=== PATIENT | female | born 2000 | race Caucasian/White ===

== ENCOUNTER 2023-01-19 20:24 | Emergency (ER) | payer OTHER, SELFPAY ==
[2023-01-19 20:46] VITALS: BP 117/71; PULSE 84; RESP 16; TEMP 36.8; O2SAT 99; BMI 23.8
--- NOTE | 2023-01-19 21:07 | ED.FEMALEGU ---
HPI - Female Genitourinary General Chief complaint: Urogenital Problems, Female Stated complaint: stomach pain Time Seen by Provider: 01/19/23 20:53 History of Present Illness HPI Narrative: This 22-year-old female comes in with heavy menstrual cramping and bleeding. She has a history of this and has been on a Depo shot. Her last shot that she received here in the [place] was done about a month and a half ago. She has had other treatments in [place]. 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 She does not report any fever, nausea, vomiting, or diarrhea. She does not report lightheadedness or shortness of breath. Related Data Home Medications Medication Instructions Recorded Confirmed No Known Home Medications 12/07/22 12/07/22 Allergies Allergy/AdvReac Type Severity Reaction Status Date / Time No Known Drug Allergies Allergy Verified 12/07/22 15:14 Review of Systems Status of ROS: Reports: 10 or more systems reviewed and unremarkable except as noted in History and below Narrative: Constitutional: No fevers, no weight gain or loss. Eyes: No discharge. No vision changes. HENT: No congestion, no sore throat, no ear pain. Cardiovascular: No chest pain, no palpitations. Respiratory: No shortness of breath, no wheezes, no cough. Gastrointestinal: No abdominal pain, no vomiting, no diarrhea. Genitourinary: No dysuria, no hematuria. Heavy menstrual bleeding with a large clot. Musculoskeletal: Normal range of motion. Skin: No rashes, no pruritis. Neurological: No dizziness, weakness, sensory change, speech change. Endo/Heme/Allergies: No bruising or bleeding. No polydipsia. Pysch: no suicidality, no anxiety, no insomnia. All other systems reviewed and are negative. PFSH PFSH Family History Grandmother High blood pressure High cholesterol Diabetes Grandfather Abuse, drug or alcohol Social History What is your current living situation?: I presently have a place to live Problems where you live: declined to answer In the past 12 months, utilities in danger of being shut off: no In past 12 months, lack of transportation kept you from medical appts, meetings, work, or getting things needed for daily living: no In the past 12 mos, have been you worried that your food would run out before you had money to buy more?: never true In the past 12 mos, the food you bought just didn't last and you didn't have money to buy more?: never true How often does anyone, including family, friends and others, physically hurt you: never How often does anyone, including family, friends and others, insult or talk down to you: never How often does anyone, including family, friends and others, threaten you with harm: never How often does anyone, including family, friends and others, scream or curse at you: never Exam Narrative: Exam Narrative: Constitutional: Well-developed, well-nourished, no acute distress. HEENT: Normocephalic, atraumatic. Neck: Normal range of motion. Nontender. Supple. Heart: Regular. No murmurs. Normal rate. Intact distal pulses. Lungs: Clear to auscultation. No chest discomfort. No wheezes, rhonchi, or rales. Abdomen: Normal bowel sounds. Lower abdominal cramping on occasion. No rebound tenderness. Genitalia: Deferred. Back: No midline tenderness. Normal range of motion. Extremities: Normal range of motion. No injury. Skin: Intact. No rash. Warm. No erythema or pallor. Neurologic: No altered sensation. No weakness. Alert and oriented. Psychiatric: No suicidality. No anxiety or depression. No insomnia. Nursing notes and vitals signs are reviewed. Const: Vital Signs, click to edit/add: Vital Signs - 24 hr 01/19/23 20:46 Temperature 98.2 F Pulse Rate [Right Pulse Oximeter] 84 Respiratory Rate 16 Blood Pressure [Ri ght Upper Arm] 117/71 Pulse Oximetry 99 Oxygen Delivery Me thod Room Air Course Vital Signs Vital signs: Initial Vital Signs Temperature 98.2 F 01/19/23 20:46 Temperature Source Temporal Artery Scan 01/19/23 20:46 Pulse Rate 84 01/19/23 20:46 Pulse Rhythm Regular 01/19/23 20:46 Respiratory Rate 16 01/19/23 20:46 Blood Pressure 117/71 01/19/23 20:46 Blood Pressure Mean 86 01/19/23 20:46 Blood Pressure Position Sitting 01/19/23 20:46 Pulse Oximetry 99 01/19/23 20:46 Oxygen Delivery Method Room Air 01/19/23 20:46 Vital Signs Temperature 98.2 F 01/19/23 20:46 Pulse Rate 84 01/19/23 20:46 Respiratory Rate 16 01/19/23 20:46 Blood Pressure 117/71 01/19/23 20:46 Pulse Oximetry 99 01/19/23 20:46 Oxygen Delivery Method Room Air 01/19/23 20:46 Temperature 98.2 F 01/19/23 20:46 Pulse Rate 84 01/19/23 20:46 Respiratory Rate 16 01/19/23 20:46 Blood Pressure 117/71 01/19/23 20:46 Pulse Oximetry 99 01/19/23 20:46 Oxygen Delivery Method Room Air 01/19/23 20:46 MDM - Female Genitourinary MDM Narrative Medical decision making narrative: This 22-year-old female comes in with heavy menstrual bleeding and cramping. She received a Depo shot a month and a half ago and states that this was done because of previous heavy menstrual bleeding. The patient denies any possibility of . An IV was established where she did receive 30 mg of Toradol and some fluids. Lab results returned with reassuring findings. Her hemoglobin is a bit low at 10.5. Her test is negative. She is not having significant ongoing bleeding. She states that she is feeling better. I advised her to follow-up with her OBGYN physician for ongoing management. She is okay to be discharged home. She did received prescription for Toradol from the [facility]. Lab Data Labs: Lab Results 01/19/23 Range/Units 21:15 WBC 11.05 H (4.50-11.00) K/uL RBC 4.24 (4.00-5.20) m/uL Hgb 10.5 L (12.0-16.0) gm/dL Hct 33.8 (33.0-51.0) % MCV 80 (80-100) fL MCH 25 L (26-34) pg MCHC 31 L (32-36) gm/dL RDW Coeff of Soumya 15.7 H (11.5-15.5) % Plt Count 405 (140-440) K/uL Neut % (Auto) 60.4 (42.0-72.0) % Lymph % (Auto) 31.6 (20-44) % [place] % (Auto) 5.6 (0.0-11.0) % Eos % (Auto) 1.4 (0.0-7.0) % Baso % (Auto) 0.3 (0.0-3.0) % Neut # (Auto) 6.70 (1.7-7.0) K/uL Lymph # (Auto) 3.50 H (0.90-2.90) K/uL [place] # (Auto) 0.60 (0.00-0.90) K/UL Eos # (Auto) 0.20 (0.00-0.50) K/uL Baso # (Auto) 0.00 (0.00-0.30) K/uL Abs Immat Gran (auto) 0.10 (0.00-0.30) K/uL Imm/Tot Granulo (auto) 0.7 % Sodium 140 (135-149) mmol/L Potassium 3.7 (3.6-5.1) mmol/L Chloride 107 (96-114) mmol/L Carbon Dioxide 20 (20-32) mmol/L Anion Gap 13 (7-15) mEq/L BUN 11 (5-24) mg/dL Creatinine 0.5 (0.5-1.5) mg/dL Estimated Creat Clear 139.58 Estimated GFR 136 ml/min Glucose 89 (60-115) mg/dL Calcium 8.7 (8.4-10.6) mg/dL HCG, Qual Negative (Negative) Discharge Plan Discharge Clinical Impression: Dysfunctional uterine bleeding Patient Disposition: Home w/ Parent or Adult Condition: Improved Additional Instructions: Take medication as needed and directed. Follow up with OBGYN clinic. Return if worsening symptoms happen. Prescriptions: No Action No Known Home Medications Follow Up/Referrals: Provider,Not a Local [Primary Care Provider] - Stand Alone Forms: Health Benefits Direct Info Instructions
[2023-01-19] MEDS: 0.9 % SODIUM CHLORIDE 1000 ml 1,000 ML IV (21:30)
[2023-01-19] MEDS: KETOROLAC 30 MG/ML inj IVP (21:30)
[2023-01-19 21:33] LABS: Basophils Percent Auto 0.3 % (0.0-3.0); Eosinophils Percent Auto 1.4 % (0.0-7.0); Hematocrit 33.8 % (33.0-51.0); Hemoglobin* 10.5 gm/dL (12.0-16.0); Immature Granulocytes Pct Auto 0.7 %; Lymphocytes Percent Auto 31.6 % (20-44); Mean Corpuscular HGB Conc 31 gm/dL (32-36); Mean Corpuscular Hemoglobin 25 pg (26-34); Mean Corpuscular Volume 80 fL (80-100); Monocytes Percent Auto 5.6 % (0.0-11.0); Neutrophils Percent Auto 60.4 % (42.0-72.0); Platelet Count* 405 K/uL (140-440); RDW Coefficient of Variation % 15.7 % (11.5-15.5); Red Blood Count 4.24 m/uL (4.00-5.20); White Blood Count* 11.05 K/uL (4.50-11.00)
[2023-01-19 21:34] LABS: Slide Review Reflex No
[2023-01-19 21:45] LABS: Chloride* 107 mmol/L (96-114); Potassium* 3.7 mmol/L (3.6-5.1); Sodium* 140 mmol/L (135-149)
[2023-01-19 21:48] LABS: Anion Gap 13 mEq/L (7-15); Carbon Dioxide* 20 mmol/L (20-32); Creatinine* 0.5 mg/dL (0.5-1.5); Est. Creatinine Clearance* 139.58; Estimated Glomerular Filt Rate 136 ml/min
[2023-01-19 21:49] LABS: Blood Urea Nitrogen* 11 mg/dL (5-24); Calcium* 8.7 mg/dL (8.4-10.6); Glucose* 89 mg/dL (60-115)
[2023-01-19 22:23] LABS: HCG Qualitative Serum* Negative (Negative)
== END 2023-01-19 23:17 | disposition home or self-care (01) ==
PROVIDERS: Emergency Provider Emergency Medicine Emergency Medical Services
DX: N93.8 Other specified abnormal uterine and vaginal bleeding (principal)
CPT/HCPCS: 36415; 80048; 84703; 85025; 96374; 99283; 99284; J1885; J7030

== ENCOUNTER 2023-11-30 15:48 | Outpatient (REF) | payer SELFPAY ==
--- NOTE | 2023-11-30 16:00 | CRLHL7_ITS ---
For Patients: As a result of the Century Cures Act, medical imaging exams and procedure reports are released immediately into your electronic medical record. You may view this report before your referring provider. If you have questions, please contact your health care provider. Indication: Elbow pain Technique: Left elbow 2 views Comparison: None Findings: Bones: Alignment is normal. No fractures or bone lesions. Joint spaces: Joint spaces are well maintained. No degenerative changes. No sign of joint effusion. Soft tissues: Unremarkable. Impression: No findings to explain pain. Dictated by Leodan Vernon MD @ 12/01/2023 2:20:55 PM (Electronically Signed)
== END 2023-11-30 15:49 | disposition home or self-care (01) ==
LOC: RAD 15:48
PROVIDERS: Visit Provider Family Medicine
DX: M25.522 Pain in left elbow (principal)
CPT/HCPCS: 73070

== ENCOUNTER 2025-02-11 23:08 | Outpatient (CLI) | payer OTHER, SELFPAY | END 2025-02-11 23:09 | disposition home or self-care (01) | PROVIDERS: Visit Provider Emergency Medicine | DX: R45.851 Suicidal ideations (principal) | CPT/HCPCS: A0425; A0427 ==

== ENCOUNTER 2025-02-11 23:28 | Emergency (ER) | payer OTHER, SELFPAY ==
--- NOTE | 2025-02-11 23:29 | ED.OVERDOSE ---
HPI - Overdose General Time Seen by Provider: 23:30 Date Seen: 02/11/25 Chief Complaint: Overdose Stated Complaint: OD Time Seen by Provider: 02/11/25 23:31 Source: patient and EMS Mode of arrival: EMS History of Present Illness HPI Narrative: Elvi is a 24-year-old female with past medical history of depression who presents to the emergency department from home by EMS for evaluation of intentional overdose. Patient reports that she took 33 tablets of 600 [place] [address] mg around 2230. When asked if patient took them to harm herself or for pain she did not respond. Patient reports the last time she self harmed was 3 years ago and reports that she did the exact same thing (overdosed on medications). When asked if patient had any new stressors patient replied with she does not want to talk about it. Patient states she does not take any medications for her depression. Denies any homicide ideation. Patient denies any other medications taken this evening (prescription or [id number]). Denies any alcohol, substance use. Patient denies any acute medical complaints, denies any fever, chills, chest pain, shortness of breath, abdominal pain, nausea, vomiting. No other complaints. Related Data Home Medications ?Medication ?Instructions ?Recorded ?Confirmed medroxyprogesterone 150 mg/mL 150 mg IM [id number] 04/17/24 02/11/25 intramuscular suspension (Depo-Provera) Allergies Allergy/AdvReac Type Severity Reaction Status Date / Time No Known Drug Allergies Allergy Verified 05/27/24 14:18 Review of Systems Narrative: Past medical history, past surgical history, medications, allergies, family history, and social history were reviewed with the patient. No additional pertinent items. A medically appropriate review of systems was performed with pertinent positives and negatives noted in HPI, all other systems negative. PFSH PFSH Family History Grandmother High blood pressure High cholesterol Diabetes Grandfather Abuse, drug or alcohol Social History (Updated 05/27/24 @ 14:23 by Hilary Crocker~[facility], [facility]) What is your current living situation?: I presently have a place to live Problems where you live: declined to answer In the past 12 months, utilities in danger of being shut off: no In past 12 months, lack of transportation kept you from medical appts, meetings, work, or getting things needed for daily living: no In the past 12 mos, have been you worried that your food would run out before you had money to buy more?: never true In the past 12 mos, the food you bought just didn't last and you didn't have money to buy more?: never true Non-prescribed substance use: denies use How often does anyone, including family, friends and others, physically hurt you: never How often does anyone, including family, friends and others, insult or talk down to you: never How often does anyone, including family, friends and others, threaten you with harm: decline to answer How often does anyone, including family, friends and others, scream or curse at you: decline to answer Exam Narrative: Exam Narrative: General: Afebrile, no acute distress HEENT: Normocephalic, atraumatic, conjunctiva normal. MMM Neck: non-tender, supple Cardio: regular rate. regular rhythm Resp: Normal work of breathing, no respiratory distress, lungs clear bilaterally, no wheezing, rhonchi, rales Chest/Back: no visual signs of trauma, no midline tenderness, no CVA tenderness Abdomen: soft, non distension, no tenderness, no peritoneal signs Neuro: alert and fully oriented. CN II-XII grossly intact. Grossly normal strength and sensation in all extremities. MSK: no deformities. Normal range of motion Integumentary/Skin: no rash visualized, normal color Psych: sagar affect, normal behavior Const: Vital Signs, click to edit/add: Vital Signs - 24 hr 02/11/25 23:42 Temperature 99.1 F Pulse Rate [Pulse Oximeter] 100 Respiratory Rate 20 Blood Pressure [Ri ght Upper Arm] 141/101 H Pulse Oximetry 99 Oxygen Delivery Me thod Room Air Course Vital Signs Vital signs: Initial Vital Signs Temperature 99.1 F 02/11/25 23:42 Temperature Source Temporal Artery Scan 02/11/25 23:42 Pulse Rate 100 02/11/25 23:42 Pulse Rhythm Regular 02/11/25 23:42 Respiratory Rate 20 02/11/25 23:42 Blood Pressure 141/101 H 02/11/25 23:42 Blood Pressure Mean 114 H 02/11/25 23:42 Blood Pressure Position Sitting 02/11/25 23:42 Pulse Oximetry 99 02/11/25 23:42 Oxygen Delivery Method Room Air 02/11/25 23:42 Vital Signs Temperature 99.1 F 02/11/25 23:42 Pulse Rate 100 02/11/25 23:42 Respiratory Rate 20 02/11/25 23:42 Blood Pressure 141/101 H 02/11/25 23:42 Pulse Oximetry 99 02/11/25 23:42 Oxygen Delivery Method Room Air 02/11/25 23:42 Temperature 99.1 F 02/11/25 23:42 Pulse Rate 100 02/11/25 23:42 Respiratory Rate 20 02/11/25 23:42 Blood Pressure 141/101 H 02/11/25 23:42 Pulse Oximetry 99 02/11/25 23:42 Oxygen Delivery Method Room Air 02/11/25 23:42 MDM - Overdose MDM Narrative Medical decision making narrative: lEvi is a 24-year-old female with past medical history of depression who presents to the emergency department from home by EMS for evaluation of intentional overdose. Upon arrival patient is nontoxic appearing, afebrile, no distress. Patient here with what appears to be intentional [place] [address] mg at 2230. I discussed patient management poison Control who recommends obtaining comprehensive labs at 2:30 a.m.. Plan for behavior health assessment performed given concerns for intentional overdose/self-harm. Upon arrival patient is slightly hypertensive 141/100, heart rate 100, oxygen 99% on room air. Patient resting comfortably, no distress. Comprehensive labs remarkable for white blood cell count of 8.7, hemoglobin 12.0, no acute metabolic or electrolyte abnormality, normal creatinine 0.5, urinalysis with no evidence of acute infection, negative test, salicylate level negative, acetaminophen level negative, urine drug screen positive for marijuana. Negative alcohol, negative COVID. Discussed case with poison Control, at this time patient is medically cleared. 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 I discussed with patient. Patient is agreeable to this plan. I did discuss that if patient was not willing to stay she would be holdable. At this time will plan on voluntary admission. Patient signed out to morning provider pending mental health placement/transfer. Medical Records Attestation: I reviewed the patient's medical records. Lab Data Attestation: I reviewed the patient's lab results. Labs: Lab Results 02/12/25 02/12/25 Range/Units 02:35 02:40 WBC 8.75 (4.50-11.00) K/uL RBC 4.22 (4.00-5.20) m/uL Hgb 12.0 (12.0-16.0) gm/dL Hct 37.3 (33.0-51.0) % MCV 88 (80-100) fL MCH 28 (26-34) pg MCHC 32 (32-36) gm/dL RDW Coeff of Soumya 14.1 (11.5-15.5) % Plt Count 281 (140-440) K/uL Neut % (Auto) 59.8 (42.0-72.0) % Lymph % (Auto) 33.6 (20-44) % [place] % (Auto) 5.0 (0.0-11.0) % Eos % (Auto) 1.1 (0.0-7.0) % Baso % (Auto) 0.2 (0.0-3.0) % Neut # (Auto) 5.22 (1.7-7.0) K/uL Lymph # (Auto) 2.94 H (0.90-2.90) K/uL [place] # (Auto) 0.40 (0.00-0.90) K/UL Eos # (Auto) 0.10 (0.00-0.50) K/uL Baso # (Auto) 0.02 (0.00-0.30) K/uL Abs Immat Gran (auto) 0.03 (0.00-0.30) K/uL Imm/Tot Granulo (auto) 0.3 % Sodium 141 (135-149) mmol/L Potassium 3.6 (3.6-5.1) mmol/L Chloride 111 (96-114) mmol/L Carbon Dioxide 21 (20-32) mmol/L Anion Gap 9 (7-15) mEq/L BUN 15 (5-24) mg/dL Creatinine 0.5 (0.5-1.5) mg/dL Estimated GFR 134 ml/min Glucose 121 H (60-115) mg/dL Calcium 9.2 (8.4-10.6) mg/dL Urine Color Yellow (Yellow) Urine Appearance Clear (Clear) Urine pH 5.5 (5.0-8.5) Ur Specific [place] >= 1.030 (1.000-1.030) Urine Protein Negative (Negative) Urine Glucose (UA) Negative (Negative) Urine Ketones Negative (Negative) Urine Blood Negative (Negative) Urine Nitrite Negative (Negative) Urine Bilirubin Negative (Negative) Urine Urobilinogen 0.2 (0.2-1.0) Ur Leukocyte Esterase Negative (Negative) Urine RBC 0-2 (0-2) Urine WBC 0-2 (0-5) Ur Squamous Epith Cells Moderate A (None-Few) Amorphous Sediment Few A (None) Urine Bacteria Moderate A (None) Urine Mucus Few A (None) Urine HCG, Qual Negative (Negative) Salicylates < 1.0 L (1.0-10) mg/dL Urine Opiates Screen Negative (Negative) Ur Oxycodone Screen Negative (Negative) Urine Methadone Screen Negative (Negative) Acetaminophen < 10.0 (10.0-30.0) ug/mL Ur Barbiturates Screen Negative (Negative) U Tricyclic Antidepress Negative (Negative) Ur Phencyclidine Scrn Negative (Negative) Ur Amphetamines Screen Negative (Negative) U Methamphetamines Scrn Negative (Negative) U Benzodiazepines Scrn Negative (Negative) Urine Cocaine Screen Negative (Negative) U Marijuana (THC) Screen POSITIVE A (Negative) Ur Drug Screen Comment See Note Ethyl Alcohol < 0.01 (0.01-0.03) % SARS-CoV-2 (PCR) Negative SARS-CoV-2 (Negative) Discharge Plan Discharge Clinical Impression: Intentional overdose, Depression Patient Disposition: Xfer Other Condition: Stable Prescriptions: No Action medroxyprogesterone [Depo-Provera] 150 mg/mL suspension 150 mg IM [id number] Stand Alone Forms: MyHealth Info Instructions
[2025-02-11 23:42] VITALS: BP 141/101; PULSE 100; RESP 20; TEMP 37.3; O2SAT 99
[2025-02-12 02:42] LABS: Hematocrit* 37.3 % (33.0-51.0); Hemoglobin* 12.0 gm/dL (12.0-16.0); Immature Granulocytes Abs Auto 0.03 K/uL (0.00-0.30); Immature Granulocytes Pct Auto 0.3 %; Lymphocytes Absolute Auto 2.94 K/uL (0.90-2.90); Mean Corpuscular HGB Conc 32 gm/dL (32-36); Mean Corpuscular Hemoglobin 28 pg (26-34); Mean Corpuscular Volume 88 fL (80-100); RDW Coefficient of Variation % 14.1 % (11.5-15.5); Red Blood Count* 4.22 m/uL (4.00-5.20); Slide Review Reflex No; White Blood Count* 8.75 K/uL (4.50-11.00)
[2025-02-12 02:49] LABS: Appearance Urine Clear (Clear)
[2025-02-12 02:56] LABS: Chloride* 111 mmol/L (96-114); Potassium* 3.6 mmol/L (3.6-5.1); Sodium* 141 mmol/L (135-149)
[2025-02-12 02:58] LABS: Blood Urea Nitrogen* 15 mg/dL (5-24); Creatinine* 0.5 mg/dL (0.5-1.5); Estimated Glomerular Filt Rate 134 ml/min
[2025-02-12 02:59] LABS: Cannabinoid Screen Urine POSITIVE (Negative); Methamphetamines Screen Urine Negative (Negative); Tricyclic Antidepressant Urine Negative (Negative)
[2025-02-12 02:59] LABS: Anion Gap 9 mEq/L (7-15); Calcium* 9.2 mg/dL (8.4-10.6); Carbon Dioxide* 21 mmol/L (20-32); Glucose* 121 mg/dL (60-115)
[2025-02-12 03:02] LABS: Ur HCG Qualitative* Negative (Negative)
[2025-02-12 03:03] LABS: Acetaminophen* < 10.0 ug/mL (10.0-30.0); Ethanol* < 0.01 % (0.01-0.03); Salicylate* < 1.0 mg/dL (1.0-10)
[2025-02-12 03:16] LABS: SARS PCR* Negative SARS-CoV-2 (Negative)
[2025-02-12 05:02] VITALS: BP 135/80; PULSE 89; RESP 20; TEMP 36.9; O2SAT 99
[2025-02-12 07:10] VITALS: BP 137/88; PULSE 99; RESP 20; TEMP 37.2; O2SAT 99
[2025-02-12] MEDS: ONDANSETRON ODT 4 MG TAB PO (07:40)
== END 2025-02-12 08:00 ==
PROVIDERS: Emergency Provider Emergency Medicine
DX: T39.312A Poisoning by propionic acid derivatives, intentional self-harm, initial encounter (principal)
CPT/HCPCS: 36415; 80048; 80143; 80179; 80306; 81001; 81025; 82077; 84443; 85025; 87086; 87635; 99285; A9270

== ENCOUNTER 2025-02-12 07:45 | Outpatient (CLI) | payer OTHER, SELFPAY | END 2025-02-12 07:46 | disposition home or self-care (01) | LOC: AMB 02-27 18:55 | PROVIDERS: Visit Provider Emergency Medicine | DX: R45.851 Suicidal ideations (principal) | CPT/HCPCS: A0425; A0428 ==

== ENCOUNTER 2025-03-14 22:38 | Emergency (ER) | payer OTHER, SELFPAY ==
--- OUTSIDE RECORDS SUMMARY | 2025-03-14 22:40 | XMS_ITS | Clinical Summary ---
Author Organization [facility] Address [address] [place] [address] Care Team Providers Care Spindle Maker Name Role Phone None Reported, Pcp Primary Care Provider Unavail able Source Comments Patient records contain information from all sites at [facility]. For routine questions regarding patient records, call [phone] during business hours, M-F 8:00 AM - 5:00 PM Central Time. Record requests for emergency care only can be directed to [phone] at any time.[facility] Medications * This document contains information received from the source organization and may not represent a complete record from that organization. No known medications Active Problems Problem Noted Date Diagnosed Date Adjustment Disorder 02/13/2025 Social History Tobacco Use Types Packs/Day Years Used Date Smoking Tobacco: Never Assessed Comments Unknown Sex and Gender Information Value Date Recorded Sex Assigned at Not on file Legal Sex Female 4:07 AM [employer] Gender Identity Not on file Sexual Orientation Not on file Last Filed Vital Signs Vital Sign Reading Time Taken Comments Blood Pressure 122/58 02/13/2025 7:16 AM [employer] Pulse 75 02/13/2025 7:16 AM [employer] Temperature 36.6 C (97.9 F) 02/13/2025 7:16 AM [employer] Respiratory Rate 16 02/13/2025 7:16 AM [employer] Oxygen Saturation 99% 02/13/2025 7:16 AM [employer] Inhaled Oxygen Concentration - - Weight - - Height - - Body Mass Index - - Plan of Treatment Not on file Advance Directives For more information, please contact: [phone] * Full Code (Latest Code Status on File) Date Activated Date Inactivated Comments 02/13/2025 8:21 AM 02/13/2025 6:26 PM Question Answer Comments Full Code: Not Discussed Due to: Patient not available Care Teams Spindle Maker Relationship Specialty Start Date End Date None Reported, Pcp PCP - General Family Medicine 02/13/25
[2025-03-14 22:52] VITALS: BP 134/89; PULSE 79; RESP 16; TEMP 36.6; O2SAT 98
--- NOTE | 2025-03-14 23:42 | ED.GENADULT ---
HPI - General Adult General Chief complaint: Abdominal Pain <Casie Mayo MD - Last Filed: 03/16/25 23:56> Stated complaint: Headache, vomiting <Casie Mayo MD - Last Filed: 03/16/25 23:56> Time Seen by Provider: 03/14/25 22:40 <Casie Mayo MD - Last Filed: 03/16/25 23:56> Source: patient <Casie Mayo MD - Last Filed: 03/16/25 23:56> Mode of arrival: ambulatory <Casie Mayo MD - Last Filed: 03/16/25 23:56> Limitations: language barrier (Video lang interpreter used) <Casie Mayo MD - Last Filed: 03/16/25 23:56> History of Present Illness HPI narrative: 24-year-old female with no prior history of abdominal surgeries presents to the emergency department for evaluation of 3 days of epigastric area abdominal pain that does not radiate. No fevers, no trauma or injury. Does have a mild diffuse headache as well. Is also having some loose stools, last was shortly prior to arrival. Did have vomiting at about 8:00 p.m., mom gave patient an unknown anti nausea medication, has improved the vomiting but patient still feels nauseated. I suspect that this was Zofran based on her description of the taste. No prior history of abdominal surgeries. She is on Depo-Provera for contraception, does not get a menstrual cycle. She is up-to-date on the Depo and is due for another injection on the . No pelvic pain, no unusual vaginal discharge. No dysuria. No history of kidney stones. Had a little bit of back pain yesterday, not currently present. Did have a brief episode of radiation up into the chest area yesterday, resolved, was associated with nausea. No personal or family history of gallbladder disease. No prior similar symptoms. Low appetite but is still drinking. No bloody stools. Reports benign past medical history, no long-term health issues. Only long-term medication is Depo-Provera, no known drug allergies. Nonsmoker. Family history negative for gallbladder disease. ROS is notable for the abdominal and generalized symptoms only, otherwise denies times 12 systems. <Casie Mayo MD - Last Filed: 03/16/25 23:56> Related Data Home medications: Home Medications ?Medication ?Instructions ?Recorded ?Confirmed medroxyprogesterone 150 mg/mL 150 mg IM [id number] 04/17/24 02/11/25 intramuscular suspension (Depo-Provera) Previous Rx's ?Medication ?Instructions ?Recorded ondansetron 4 mg disintegrating 4 mg PO Q6H PRN nausea and 03/15/25 tablet vomiting #20 tabs <Casie Mayo MD - Last Filed: 03/16/25 23:56> Allergies/adverse reactions: Allergies Allergy/AdvReac Type Severity Reaction Status Date / Time No Known Drug Allergies Allergy Verified 05/27/24 14:18 <Casie Mayo MD - Last Filed: 03/16/25 23:56> PFSH PFSH Family History: Family History Grandmother High blood pressure High cholesterol Diabetes Grandfather Abuse, drug or alcohol <Casie Mayo MD - Last Filed: 03/16/25 23:56> Social History: Social History What is your current living situation?: I presently have a place to live Problems where you live: declined to answer In the past 12 months, utilities in danger of being shut off: no In past 12 months, lack of transportation kept you from medical appts, meetings, work, or getting things needed for daily living: no In the past 12 mos, have been you worried that your food would run out before you had money to buy more?: never true In the past 12 mos, the food you bought just didn't last and you didn't have money to buy more?: never true Smoking Status: Never smoker How often do you have a drink containing alcohol: monthly or less AUDIT-C Alcohol total score: 1 Non-prescribed substance use: denies use How often does anyone, including family, friends and others, physically hurt you: never How often does anyone, including family, friends and others, insult or talk down to you: never How often does anyone, including family, friends and others, threaten you with harm: decline to answer How often does anyone, including family, friends and others, scream or curse at you: decline to answer service: No <Casie Mayo MD - Last Filed: 03/16/25 23:56> Exam Const: Vital Signs, click to edit/add: Vital Signs - 24 hr 03/14/25 22:52 Temperature 97.9 F Pulse Rate [Pulse Oximeter] 79 Respiratory Rate 16 Blood Pressure [Ri ght Upper Arm] 134/89 Pulse Oximetry 98 Oxygen Delivery Me thod Room Air <Casie Mayo MD - Last Filed: 03/16/25 23:56> Vital Signs, click to edit/add: Vital Signs - 24 hr 03/14/25 22:52 Temperature 97.9 F Pulse Rate [Pulse Oximeter] 79 Respiratory Rate 16 Blood Pressure [Ri ght Upper Arm] 134/89 Pulse Oximetry 98 Oxygen Delivery Me thod Room Air <Cira Moreno MD - Last Filed: 03/15/25 01:33> Documenting provider has reviewed patient's vital signs: yes <Casie Mayo MD - Last Filed: 03/16/25 23:56> Common normals: no apparent distress and alert <Casie Mayo MD - Last Filed: 03/16/25 23:56> General appearance: cooperative and well kempt <Casie Mayo MD - Last Filed: 03/16/25 23:56> HENMT: Common normals: normocephalic, moist oral mucous membranes and oropharynx normal <Casie Mayo MD - Last Filed: 03/16/25 23:56> Head and scalp: normocephalic <Casie Mayo MD - Last Filed: 03/16/25 23:56> Face and sinus: normal facial exam <Casie Mayo MD - Last Filed: 03/16/25 23:56> Mouth: oral and palatal mucosa normal <MD Carmela Kamara Last Filed: 03/16/25 23:56> Eye: Common normals: conjunctivae normal <Casie Mayo MD - Last Filed: 03/16/25 23:56> General eye: normal appearance of both eyes <MD Carmela Kamara Last Filed: 03/16/25 23:56> Conjunctiva: conjunctiva(e) normal <MD Carmela Kamara Last Filed: 03/16/25 23:56> Neck & C-Spine: Common normals: full ROM and no lymphadenopathy <Casie Mayo MD - Last Filed: 03/16/25 23:56> General: normal visual inspection <MD Carmela Kamara Last Filed: 03/16/25 23:56> Resp: Common normals: normal respiratory effort, no use of accessory muscles and clear to auscultation bilaterally <MD Carmela Kamara Last Filed: 03/16/25 23:56> Effort & inspection: able to speak in complete sentences <MD Carmela Kamara Last Filed: 03/16/25 23:56> Auscultation: clear to auscultation bilaterally <MD Carmela Kamara Last Filed: 03/16/25 23:56> Cardio: Common normals: regular rate, regular rhythm, S1 normal heart sound, S2 normal heart sound and no murmurs <MD Carmela Kamara Last Filed: 03/16/25 23:56> Rate: regular rate <MD Carmela Kamara Last Filed: 03/16/25 23:56> Rhythm: regular rhythm <MD Carmela Kamara Last Filed: 03/16/25 23:56> Heart sounds: S1 normal and S2 normal <MD Carmela Kamara Last Filed: 03/16/25 23:56> GI: Common normals: Normal to inspection, nondistended, normoactive bowel sounds present, soft to palpation, non-tender, no hepatosplenomegaly and no masses <MD Carmela Kamara Last Filed: 03/16/25 23:56> Palpation: soft and no hepatosplenomegaly <MD Carmela Kamara Last Filed: 03/16/25 23:56> : Common normals: no CVA tenderness <Casie Mayo MD - Last Filed: 03/16/25 23:56> Bladder/kidney exam: no CVA tenderness <MD Carmela Kamara Last Filed: 03/16/25 23:56> Back & Pelvis: Common normals: no CVA tenderness <Casie Mayo MD - Last Filed: 03/16/25 23:56> Extremity: Common normals: normal to inspection <Casie Mayo MD - Last Filed: 03/16/25 23:56> Neuro: Common normals: moves all extremities <Casie Mayo MD - Last Filed: 03/16/25 23:56> Sensorium/orientation: alert <Casie Mayo MD - Last Filed: 03/16/25 23:56> Speech: speech normal <Casie Mayo MD - Last Filed: 03/16/25 23:56> Psych: Appearance: well kempt <Casie Mayo MD - Last Filed: 03/16/25 23:56> Activity/motor behavior: appropriate eye contact <Casie Mayo MD - Last Filed: 03/16/25 23:56> Mood and affect: euthymic mood <Casie Mayo MD - Last Filed: 03/16/25 23:56> Insight: insight good <MD Carmela Kamara Last Filed: 03/16/25 23:56> Judgement: judgment good <MD Carmela Kamara Last Filed: 03/16/25 23:56> Skin: Common normals: no rashes or lesions noted <Casie Mayo MD - Last Filed: 03/16/25 23:56> General skin exam: no rashes or lesions noted <MD Carmela Kamara Last Filed: 03/16/25 23:56> Course Course ED Course: 24-year-old female with epigastric area abdominal pain. No signs of sepsis, hypotension or tachycardia. There is a diagnosis most likely gastroenteritis, cannot exclude GERD, gallbladder disease, gallstone, pancreatitis, colitis, cholecystitis, amongst others. Patient is nontender on exam which is somewhat reassuring. Duration of symptoms as warrant further workup, denies alcohol use. Recommend peripheral IV, IV fluid, Zofran, Toradol and oral omeprazole. Typical labs to look for signs of gallbladder disease, pancreatitis, inflammation or infection. I suspect these will likely be negative. Unlikely to be related complication, on Depo-Provera but I have ordered a urinalysis and urine test. If improved, would recommend discharge on oral Zofran, discussion consider oral Imodium. Would recommend imaging if liver enzymes elevated or any signs of pancreatitis. The patient agreeable to this initial plan, will hand over care to incoming on assistant shift supervisor partner <Casie Mayo MD - Last Filed: 03/16/25 23:56> Reevaluation(s) Time of Reevaluation #1: 01:32 <Cira Moreno MD - Last Filed: 03/15/25 01:33> Reevaluation #1: All labs are normal, patient has no pain, feels better. They have opted to have the Zofran sent to the pharmacy. Plan will be to discharge to home without change to Dr. Mayo's plan. <Cira Moreno MD - Last Filed: 03/15/25 01:33> Vital Signs Vital signs: Initial Vital Signs Temperature 97.9 F 03/14/25 22:52 Temperature Source Temporal Artery Scan 03/14/25 22:52 Pulse Rate 79 03/14/25 22:52 Respiratory Rate 16 03/14/25 22:52 Blood Pressure 134/89 03/14/25 22:52 Blood Pressure Mean 104 03/14/25 22:52 Blood Pressure Position Sitting 03/14/25 22:52 Pulse Oximetry 98 03/14/25 22:52 Oxygen Delivery Method Room Air 03/14/25 22:52 Vital Signs Temperature 97.9 F 03/14/25 22:52 Pulse Rate 79 03/14/25 22:52 Respiratory Rate 16 03/14/25 22:52 Blood Pressure 134/89 03/14/25 22:52 Pulse Oximetry 98 03/14/25 22:52 Oxygen Delivery Method Room Air 03/14/25 22:52 Temperature 97.9 F 03/14/25 22:52 Pulse Rate 79 03/14/25 22:52 Respiratory Rate 16 03/14/25 22:52 Blood Pressure 134/89 03/14/25 22:52 Pulse Oximetry 98 03/14/25 22:52 Oxygen Delivery Method Room Air 03/14/25 22:52 <Casie Mayo MD - Last Filed: 03/16/25 23:56> Initial Vital Signs Temperature 97.9 F 03/14/25 22:52 Temperature Source Temporal Artery Scan 03/14/25 22:52 Pulse Rate 79 03/14/25 22:52 Respiratory Rate 16 03/14/25 22:52 Blood Pressure 134/89 03/14/25 22:52 Blood Pressure Mean 104 03/14/25 22:52 Blood Pressure Position Sitting 03/14/25 22:52 Pulse Oximetry 98 03/14/25 22:52 Oxygen Delivery Method Room Air 03/14/25 22:52 Vital Signs Temperature 97.9 F 03/14/25 22:52 Pulse Rate 79 03/14/25 22:52 Respiratory Rate 16 03/14/25 22:52 Blood Pressure 134/89 03/14/25 22:52 Pulse Oximetry 98 03/14/25 22:52 Oxygen Delivery Method Room Air 03/14/25 22:52 Temperature 97.9 F 03/14/25 22:52 Pulse Rate 79 03/14/25 22:52 Respiratory Rate 16 03/14/25 22:52 Blood Pressure 134/89 03/14/25 22:52 Pulse Oximetry 98 03/14/25 22:52 Oxygen Delivery Method Room Air 03/14/25 22:52 <Cira Moreno MD - Last Filed: 03/15/25 01:33> Medications Administered Medications: Discontinued Medications Generic Name Dose Route Start Last Admin Trade Name Freq PRN Reason Stop Dose Admin Sodium Chloride 1,000 mls @ 1,000 mls/hr 03/14/25 23:40 03/15/25 01:34 0.9 % Sodium Chloride 1000 Ml IV 03/15/25 00:39 Infused .Q1H ALONDRA Infusion Ketorolac Tromethamine 15 mg 03/14/25 23:39 03/15/25 00:00 Ketorolac 15 Mg/Ml Inj IVP 03/14/25 23:40 15 mg ONCE ONE Administration Omeprazole 20 mg 03/14/25 23:39 12/06/25 00:01 Omeprazole [address] PO 03/14/25 23:40 20 mg ONCE ONE Administration Ondansetron HCl 4 mg 03/14/25 23:39 03/15/25 00:00 Ondansetron 2 Mg/Ml Inj IVP 03/14/25 23:40 4 mg ONCE ONE Administration <Casie Mayo MD - Last Filed: 03/16/25 23:56> Discontinued Medications Generic Name Dose Route Start Last Admin Trade Name Freq PRN Reason Stop Dose Admin Sodium Chloride 1,000 mls @ 1,000 mls/hr 03/14/25 23:40 03/15/25 01:34 0.9 % Sodium Chloride 1000 Ml IV 03/15/25 00:39 Infused .Q1H ALONDRA Infusion Ketorolac Tromethamine 15 mg 03/14/25 23:39 03/15/25 00:00 Ketorolac 15 Mg/Ml Inj IVP 03/14/25 23:40 15 mg ONCE ONE Administration Omeprazole 20 mg 03/14/25 23:39 03/15/25 00:01 Omeprazole [address] PO 03/14/25 23:40 20 mg ONCE ONE Administration Ondansetron HCl 4 mg 03/14/25 23:39 03/15/25 00:00 Ondansetron 2 Mg/Ml Inj IVP 03/14/25 23:40 4 mg ONCE ONE Administration <Cira Moreno MD - Last Filed: 03/15/25 01:33> Medical Decision Making Lab Data Lab results reviewed: Yes I reviewed the patient's lab results <Cira Moreno MD - Last Filed: 03/15/25 01:33> Lab results narrative: Labs reassuring. No signs of significant leukocytosis, inflammation, pancreatitis, electrolyte abnormality. Urine is a bit concentrated indicating likely a mild dehydration but BUN was reassuring. test negative. <Casie Mayo MD - Last Filed: 03/16/25 23:56> Labs: Lab Results 03/14/25 03/14/25 Range/Units 00:34 23:55 WBC 10.70 (4.50-11.00) K/uL RBC 4.37 (4.00-5.20) m/uL Hgb 12.5 (12.0-16.0) gm/dL Hct 38.8 (33.0-51.0) % MCV 89 (80-100) fL MCH 29 (26-34) pg MCHC 32 (32-36) gm/dL RDW Coeff of Soumya 13.4 (11.5-15.5) % Plt Count 252 (140-440) K/uL Neut % (Auto) 61.7 (42.0-72.0) % Lymph % (Auto) 31.9 (20-44) % Whitfield % (Auto) 4.0 (0.0-11.0) % Eos % (Auto) 1.5 (0.0-7.0) % Baso % (Auto) 0.3 (0.0-3.0) % Neut # (Auto) 6.61 (1.7-7.0) K/uL Lymph # (Auto) 3.41 H (0.90-2.90) K/uL Whitfield # (Auto) 0.40 (0.00-0.90) K/UL Eos # (Auto) 0.16 (0.00-0.50) K/uL Baso # (Auto) 0.03 (0.00-0.30) K/uL Abs Immat Gran (auto) 0.06 (0.00-0.30) K/uL Imm/Tot Granulo (auto) 0.6 % Sodium 139 (135-149) mmol/L Potassium 3.6 (3.6-5.1) mmol/L Chloride 104 (96-114) mmol/L Carbon Dioxide 22 (20-32) mmol/L Anion Gap 13 (7-15) mEq/L BUN 15 (5-24) mg/dL Creatinine 0.7 (0.5-1.5) mg/dL Estimated GFR 124 ml/min Glucose 121 H (60-115) mg/dL Calcium 8.9 (8.4-10.6) mg/dL Total Bilirubin 0.5 (0.1-1.5) mg/dL AST 26 (12-35) U/L ALT 28 (4-35) U/L Alkaline Phosphatase 116 (40-150) U/L C-Reactive Protein 1.1 H (0.5-1.0) mg/dL Total Protein 7.6 (6.0-8.3) g/dL Albumin 4.2 (3.3-5.0) g/dL Lipase 118 (23-300) U/L Urine Color Yellow (Yellow) Urine Appearance Clear (Clear) Urine pH 6.0 (5.0-8.5) Ur Specific Sterling >= 1.030 (1.000-1.030) Urine Protein Negative (Negative) Urine Glucose (UA) Negative (Negative) Urine Ketones Negative (Negative) Urine Blood Negative (Negative) Urine Nitrite Negative (Negative) Urine Bilirubin Negative (Negative) Urine Urobilinogen 0.2 (0.2-1.0) Ur Leukocyte Esterase Negative (Negative) Urine HCG, Qual Negative (Negative) <Casie Mayo MD - Last Filed: 03/16/25 23:56> Lab Results 03/14/25 03/14/25 Range/Units 00:34 23:55 WBC 10.70 (4.50-11.00) K/uL RBC 4.37 (4.00-5.20) m/uL Hgb 12.5 (12.0-16.0) gm/dL Hct 38.8 (33.0-51.0) % MCV 89 (80-100) fL MCH 29 (26-34) pg MCHC 32 (32-36) gm/dL RDW Coeff of Soumya 13.4 (11.5-15.5) % Plt Count 252 (140-440) K/uL Neut % (Auto) 61.7 (42.0-72.0) % Lymph % (Auto) 31.9 (20-44) % Whitfield % (Auto) 4.0 (0.0-11.0) % Eos % (Auto) 1.5 (0.0-7.0) % Baso % (Auto) 0.3 (0.0-3.0) % Neut # (Auto) 6.61 (1.7-7.0) K/uL Lymph # (Auto) 3.41 H (0.90-2.90) K/uL Whitfield # (Auto) 0.40 (0.00-0.90) K/UL Eos # (Auto) 0.16 (0.00-0.50) K/uL Baso # (Auto) 0.03 (0.00-0.30) K/uL Abs Immat Gran (auto) 0.06 (0.00-0.30) K/uL Imm/Tot Granulo (auto) 0.6 % Sodium 139 (135-149) mmol/L Potassium 3.6 (3.6-5.1) mmol/L Chloride 104 (96-114) mmol/L Carbon Dioxide 22 (20-32) mmol/L Anion Gap 13 (7-15) mEq/L BUN 15 (5-24) mg/dL Creatinine 0.7 (0.5-1.5) mg/dL Estimated GFR 124 ml/min Glucose 121 H (60-115) mg/dL Calcium 8.9 (8.4-10.6) mg/dL Total Bilirubin 0.5 (0.1-1.5) mg/dL AST 26 (12-35) U/L ALT 28 (4-35) U/L Alkaline Phosphatase 116 (40-150) U/L C-Reactive Protein 1.1 H (0.5-1.0) mg/dL Total Protein 7.6 (6.0-8.3) g/dL Albumin 4.2 (3.3-5.0) g/dL Lipase 118 (23-300) U/L Urine Color Yellow (Yellow) Urine Appearance Clear (Clear) Urine pH 6.0 (5.0-8.5) Ur Specific Sterling >= 1.030 (1.000-1.030) Urine Protein Negative (Negative) Urine Glucose (UA) Negative (Negative) Urine Ketones Negative (Negative) Urine Blood Negative (Negative) Urine Nitrite Negative (Negative) Urine Bilirubin Negative (Negative) Urine Urobilinogen 0.2 (0.2-1.0) Ur Leukocyte Esterase Negative (Negative) Urine HCG, Qual Negative (Negative) <Cira Moreno MD - Last Filed: 03/15/25 01:33> Discharge Plan Discharge Clinical Impression: Gastroenteritis <Casie Mayo MD - Last Filed: 03/16/25 23:56> Patient Disposition: Home, Self-Care <Casie Mayo MD - Last Filed: 03/16/25 23:56> Condition: Improved <Casie Mayo MD - Last Filed: 03/16/25 23:56> Instructions: Gastroenteritis (DC) <Casie Mayo MD - Last Filed: 03/16/25 23:56> Additional Instructions: Your labs are reassuring, most likely this is a viral gastroenteritis. There do not seem to be any signs of gallbladder disease, pancreatitis, major infection or other abnormality. Keep pushing fluids. I recommend the use [id number] omeprazole 1 pill 30 minutes prior to your evening meal for the next 2 weeks. I have prescribed ondansetron, a common anti nausea medicine. Use this up to every 6 hours as needed for nausea and vomiting. Symptoms are likely to improve in another 2-3 days. If you have bloody stools, high fevers, persistent vomiting or other worrisome findings, please come back to the emergency room. <Casie Mayo MD - Last Filed: 03/16/25 23:56> Activity Level: Activity as Tolerated <Casie Mayo MD - Last Filed: 03/16/25 23:56> Activity as Tolerated <iCra Moreno MD - Last Filed: 03/15/25 01:33> Discharge Diet: Regular <Casie Mayo MD - Last Filed: 03/16/25 23:56> Regular <Cira Moreno MD - Last Filed: 03/15/25 01:33> Prescriptions: New ondansetron 4 mg tablet,disintegrating 4 mg PO Q6H PRN (Reason: nausea and vomiting) Qty: 20 0RF No Action medroxyprogesterone [Depo-Provera] 150 mg/mL suspension 150 mg IM [id number] <Casie Mayo MD - Last Filed: 03/16/25 23:56> Follow Up/Referrals: Provider,Not a Local [Primary Care Provider, Family Practice] <Casie Mayo MD - Last Filed: 03/16/25 23:56> Stand Alone Forms: MyHealth Info Instructions <Casie Mayo MD - Last Filed: 03/16/25 23:56>
[2025-03-15] MEDS: ONDANSETRON 2 MG/ML inj 4 MG IVP
[2025-03-15] MEDS: OMEPRAZOLE 20 MG CAPSULE DR PO (00:01)
[2025-03-15 00:05] LABS: Hematocrit* 38.8 % (33.0-51.0); Hemoglobin* 12.5 gm/dL (12.0-16.0); Immature Granulocytes Abs Auto 0.06 K/uL (0.00-0.30); Immature Granulocytes Pct Auto 0.6 %; Lymphocytes Absolute Auto 3.41 K/uL (0.90-2.90); Mean Corpuscular HGB Conc 32 gm/dL (32-36); Mean Corpuscular Hemoglobin 29 pg (26-34); Mean Corpuscular Volume 89 fL (80-100); RDW Coefficient of Variation % 13.4 % (11.5-15.5); Red Blood Count* 4.37 m/uL (4.00-5.20); White Blood Count* 10.70 K/uL (4.50-11.00)
[2025-03-15 00:08] LABS: Slide Review Reflex No
--- OUTSIDE RECORDS SUMMARY | 2025-03-15 00:08 | XMS_ITS | Clinical Summary ---
Author Organization [facility] Address [address] [place] [address] Care Team Providers Care Social Work Faculty Member Name Role Phone None Reported, Pcp Primary Care Provider Unavail able Source Comments Patient records contain information from all sites at [facility]. For routine questions regarding patient records, call [phone] during business hours, M-F 8:00 AM - 5:00 PM Central Time. Record requests for emergency care only can be directed to [phone] at any time.[facility] Medications * This document contains information [...] on file Legal Sex Female 4:07 AM GUIDE [employer]OUR Gender Identity Not on file Sexual Orientation Not on file Last Filed Vital Signs Vital Sign Reading Time Taken Comments Blood Pressure 122/58 02/13/2025 7:16 AM GUIDE TOUR Pulse 75 02/13/2025 7:16 AM GUIDE TOUR Temperature 36.6 C (97.9 F) 02/13/2025 7:16 AM GUIDE TOUR Respiratory Rate 16 02/13/2025 7:16 AM GUIDE TOUR Oxygen Saturation 99% 02/13/2025 7:16 AM GUIDE TOUR Inhaled Oxygen Concentration - - Weight - - Height - - Body Mass Index - - Plan of Treatment Not on file Advance Directives For more information, please contact: [phone] * Full Code (Latest Code Status on File) Date Activated Date Inactivated Comments 02/13/2025 8:21 AM 02/13/2025 6:26 PM Question Answer Comments Full Code: Not Discussed Due to: Patient not available Care Teams Social Work Faculty Member Relationship Specialty Start Date End Date None Reported, Pcp PCP - General Family Medicine 02/13/25
[2025-03-15 00:45] LABS: Appearance Urine Clear (Clear)
[2025-03-15 00:46] LABS: Ur HCG Qualitative* Negative (Negative)
[2025-03-15 00:50] LABS: Albumin* 4.2 g/dL (3.3-5.0); Chloride* 104 mmol/L (96-114)
[2025-03-15 00:51] LABS: Potassium* 3.6 mmol/L (3.6-5.1); Sodium* 139 mmol/L (135-149)
[2025-03-15 00:53] LABS: Alanine Aminotransferase* 28 U/L (4-35); Alkaline Phosphatase* 116 U/L (40-150); Aspartate Amino Transferase* 26 U/L (12-35); Bilirubin Total* 0.5 mg/dL (0.1-1.5); Blood Urea Nitrogen* 15 mg/dL (5-24); Carbon Dioxide* 22 mmol/L (20-32); Creatinine* 0.7 mg/dL (0.5-1.5); Estimated Glomerular Filt Rate 124 ml/min; Total Protein* 7.6 g/dL (6.0-8.3)
[2025-03-15 00:54] LABS: Anion Gap 13 mEq/L (7-15); Calcium* 8.9 mg/dL (8.4-10.6); Glucose* 121 mg/dL (60-115)
== END 2025-03-15 01:35 | disposition home or self-care (01) ==
PROVIDERS: Emergency Provider Family Medicine
DX: K52.9 Noninfective gastroenteritis and colitis, unspecified (principal)
CPT/HCPCS: 36415; 80053; 81003; 81025; 83690; 85025; 86140; 96361; 96374; 96375; 99284; A9270; J1885; J2405; J7030